=== PATIENT | female | born 1965 | race Caucasian/White ===

== ENCOUNTER → 2016-12-02 | Outpatient (CLI) | payer MEDICAID | LOC: WI 09:51 | PROVIDERS: ATTEND Physician Assistant | DX: Z12.31 Encounter for screening mammogram for malignant neoplasm of breast (principal) | CPT/HCPCS: 77067; G0202 ==

== ENCOUNTER 2017-01-02 10:08 | Emergency (ER) | payer MEDICAID ==
[2017-01-02] MEDS ORDERED: HYDROCODONE/ACETAMINOPHEN 5-325 MG TABLET PO ONE (10:41)
--- NOTE | 2017-01-02 10:43 | ER Document Report ---
ED Extremity Problem, Lower - General Chief Complaint: Ankle Pain Stated Complaint: FAL,LEFT ANKLE PAIN Mode of Arrival: Medic Information source: Patient TRAVEL OUTSIDE OF THE [place] IN LAST 30 DAYS: No - HPI Patient complains to provider of: Injury Location: Ankle Notes: Patient arrives via EMS after injuring her left ankle. She states that she tripped over a cat liter box with her right foot causing her to land with all her weight on her left leg and twisted her left ankle. She now complains of pain to the left ankle mainly in the posterior aspect. She denies any numbness , tingling, weakness. She denies any fevers. She denies any redness. She denies any other injuries at this time. Pain is worse with movement and weightbearing, nothing seems to get better. She denies any chest pain or shortness breath. No syncope. She denies any nausea, vomiting, diarrhea. She has no other complaints at this time. - Related Data Allergies/Adverse Reactions: doxycycline [Doxycycline] Allergy (Verified 01/02/17 10:25) Penicillins Allergy (Verified 01/02/17 10:25) Sulfa (Sulfonamide Antibiotics) Allergy (Verified 01/02/17 10:25) Past Medical History - Social History Smoking Status: Unknown if Ever Smoked Family History: Reviewed & Not Pertinent Patient has suicidal ideation: No Patient has homicidal ideation: No Pulmonary Medical History: Reports: Hx COPD Renal/ Medical History: Denies: Hx Peritoneal Dialysis GI Medical History: Reports: Hx Gastroesophageal Reflux Disease, Hx Hiatal Hernia - Immunizations Hx Diphtheria, Pertussis, Tetanus Vaccination: Yes Review of Systems - Review of Systems -: Yes All other systems reviewed and negative Physical Exam - Vital signs Vitals: Temp Pulse Resp BP Pulse Ox 98.2 F 86 18 153/86 H 99 01/02/17 10:26 01/02/17 10:26 01/02/17 10:26 01/02/17 10:26 01/02/17 10:26 - Notes Notes: GENERAL: alert, cooperative, nontoxic, no distress. HEAD: normocephalic, atraumatic EYES: conjunctiva pink without discharge, no external redness or swelling. EARS: no external swelling, no external redness NOSE: atraumatic, no external swelling MOUTH/THROAT: mucous membranes moist and pink NECK: soft, supple, full range of motion, no meningismus. CHEST: no distress, lungs clear and equal throughout. No wheezing, rales, rhonchi. CARDIAC: regular rate and rhythm, no murmur, normal capillary refill, normal pulses. BACK: full range of motion, no CVA tenderness. EXTREMITIES: Patient has tenderness to palpation of the medial and lateral malleolus as well as the posterior ankle. Achilles is intact with a normal Fisher's test. She is some mild tenderness to palpation to the proximal left tib-fib, although the patient states that this is chronic. There is no redness noted. She has normal pulse and sensation distally. Remainder of her musculoskeletal exam is unremarkable. NEURO: alert and oriented 3, no focal deficits, full range of motion of all extremities. PYSCH: appropriate mood, affect. Patient is cooperative. SKIN: pink, warm, dry, no rash. Course - Re-evaluation Re-evalutation: 01/02/17 11:37 Patient's nontoxic appearing stable vitals. The patient tripped and injured her left ankle. She has no obvious ligament instability. Achilles is intact. X-rays show no obvious acute fractures. Due to the patient's body habitus, a Velcro ankle splint would not fit appropriately. The patient had an Mychal wrap applied for comfort. She was offered crutches but declined crutches or a walker. She states she has a cane at home that she will use for ambulation. I' ll discharge the patient home with NSAIDs. Follow-up with [facility] or her family doctor if not better in one week, sooner for increased pain, fever, redness, any further concerns. The patient is noted to have elevated blood pressure during today's emergency department visit. The patient was informed of this finding. The patient was instructed that this may be related to pre-hypertension and requires further evaluation with a primary care provider. The patient has no hypertensive symptoms at this time. The patient's emergency department workup and current diagnosis were explained to the patient and or family. Follow-up instructions were provided. Medications if prescribed were discussed. Instructions for when to return to the emergency department including specific worrisome symptoms were discussed with the patient and/or family. - Vital Signs Vital signs: Temp Pulse Resp BP Pulse Ox 98.2 F 86 18 153/86 H 99 01/02/17 10:26 01/02/17 10:26 01/02/17 10:26 01/02/17 10:26 01/02/17 10:26 - Diagnostic Test Radiology reviewed: Image reviewed - Negative left ankle or tib-fib for acute fracture Procedures - Immobilization left ankle Pre-Proc Neuro Vasc Exam: Normal Immobilizer type: Mychal wrap Performed by: RN Post-Proc Neuro Vasc Exam: Normal Alignment checked and good: Yes Discharge - Discharge Clinical Impression: Left ankle sprain Qualifiers: Encounter type: initial encounter Involved ligament of ankle: unspecified ligament Qualified Code(s): S93.402A - Sprain of unspecified ligament of left ankle, initial encounter Condition: Stable Disposition: HOME, SELF-CARE Instructions: Sprained Ankle ([facility]) Additional Instructions: Take medications as prescribed. Wear Mychal wrap as needed for comfort. Rest, ice , elevate her ankle. Follow-up with your family doctor or or so if not better in one week, sooner for increased pain, fever, redness, any further concerns. Your blood pressure was elevated during today's visit. Have this rechecked with your doctor. Prescriptions: Diclofenac Sodium [Voltaren] 75 mg PO BID #20 tablet.dr Forms: Elevated Blood Pressure Referrals: YANE SONG MD [ACTIVE STAFF] - Follow up as needed
[2017-01-02 11:50] VITALS: BP 129/75
== END 2017-01-02 11:45 | disposition home or self-care (01) ==
LOC: ER 10:08
DX: S93.402A Sprain of unspecified ligament of left ankle, initial encounter (principal); M25.572 Pain in left ankle and joints of left foot; W01.0XXA Fall on same level from slipping, tripping and stumbling without subsequent striking against object, initial encounter; J44.9 Chronic obstructive pulmonary disease, unspecified; R03.0 Elevated blood-pressure reading, without diagnosis of hypertension; Z88.1 Allergy status to other antibiotic agents; Z88.0 Allergy status to penicillin; Z88.2 Allergy status to sulfonamides
CPT/HCPCS: 99283

== ENCOUNTER 2017-09-03 07:57 | Day surgery (SDC) | payer MEDICAID ==
[~2017-09-03 07:57] MED LIST: KETOROLAC TROMETHAMINE 0.45% 4 DROP/0.4 ML DROPERETTE OS PRN
[2017-09-03] MEDS: TROPICAMIDE 1% OPH SOLN 3 ML OS PRN ×3 (08:40→09:20)
[2017-09-03] MEDS: CYCLOPENTOLATE 0.2%/PHENYLEPHRINE 1% OPH SOLN 2 ML OS PRN ×3 (08:40→09:20)
[2017-09-03] MEDS: BESIFLOXACIN HCL 0.6% OPH SUSP 5 ML BOTTLE OS PRN ×3 (08:41→10:05)
[2017-09-03] MEDS: TETRACAINE HCL 0.5% OPH SOLN 2 ML OS PRN ×3 (08:42→09:46)
[2017-09-03] MEDS ORDERED: LIDOCAINE 1% INJ-PF (10 MG/ML) 30 ML SDV ONE (08:49)
[2017-09-03] MEDS ORDERED: CHONDR SU A NA/HYALUR INTRAOC KIT (SURGICARE) ONE (08:49)
[2017-09-03] MEDS ORDERED: EPINEPHRINE INJ/PF 1 MG/1 ML AMPULE ONE (08:49)
[2017-09-03] MEDS ORDERED: MIDAZOLAM 2 MG/2 ML INJ ONE ×2 (09:03→09:30)
[2017-09-03] MEDS ORDERED: FENTANYL CITRATE INJ/PF 100 MCG/2 ML AMPUL ONE (09:30)
--- NOTE | 2017-09-03 21:28 | [facility] DISCHARGE SUMMARY E ---
[facility] Discharge Summary NAME: TONO NOLAND AGE: 51Y ADMITTED: 09/03/2017 DISCHARGED: 09/03/2017 HOSPITAL COURSE: This is a 51-year-old female who underwent cataract extraction of the left eye. DIAGNOSIS: CATARACT, LEFT EYE. She underwent surgery because she was having difficulty seeing road signs. DISCHARGE INSTRUCTIONS: She should be on a regular diet. No bending at her waist, no heavy lifting. She should use Besivance, Ilevro, and Durezol at 3 p.m. and 8 p.m. and sleep with a rigid shield. I will see her for her 1 day postoperative tomorrow. DICTATING PHYSICIAN: MARIO WILLIAM M.D. [id number] PHY#: [id number] ID: [id number] JOB#: [id number] ACCT: [id number] cc:MARIO WILLIAM M.D. >
--- NOTE | 2017-09-03 21:28 | [facility] OPERATIVE REPORT E ---
[facility] Operative Report NAME: TONO NOLAND AGE: 51Y DATE OF SURGERY: 09/03/2017 ROOM: PREOPERATIVE DIAGNOSIS: CATARACT, LEFT EYE. POSTOPERATIVE DIAGNOSIS: CATARACT, LEFT EYE. OPERATION: Cataract extraction with intraocular lens implant of the left eye. SURGEON: MARIO WILLIAM M.D. ANESTHESIA: Topical. PROCEDURE: After obtaining appropriate consent, the patient's left eye was prepped and draped in sterile fashion as well as the surgeon in a sterile manner and cataract surgery was started. First a paracentesis blade was used to make a small side-port incision. Viscoelastic was used to inflate the anterior chamber. Next a 2.4 mm incision was made with the paracentesis blade. A continuous capsulorrhexis incision was made using a cystotome and Utrata forceps. Following this hydrodissection was carried out to make the lens fully loose and mobile and it was rotated 90 degrees. Following this, a mggspt-bep-mqagaon technique was used to phacoemulsify the lens with a CDE of 3.27. The remaining cortex was removed with irrigation/aspiration. Provisc was instilled into the capsular bag to inflate the bag. A SN60WF, 22.5 diopter lens was placed. The remaining viscoelastic material was removed with irrigation/aspiration. Following this, a 10-0 nylon suture was used to close the incision and it was found to be watertight. Vigamox was instilled in the eye and a protective shield was placed over the eye. The patient returned to the postoperative recovery in stable condition. DICTATING PHYSICIAN: MARIO WILLIAM M.D. [id number] PHY#: [id number] ID: [id number] JOB#: [id number] ACCT: [id number] cc:MARIO WILLIAM M.D. >
== END 2017-09-03 10:45 | disposition home or self-care (01) ==
LOC: SC 07:57
PROVIDERS: ATTEND Internal Medicine
PROC: 08RK3JZ Replacement of Left Lens with Synthetic Substitute, Percutaneous Approach (ICD-10-PCS; principal; 2017-09-03 10:00)
DX: H25.13 Age-related nuclear cataract, bilateral (principal); J44.9 Chronic obstructive pulmonary disease, unspecified; I10 Essential (primary) hypertension; M35.3 Polymyalgia rheumatica; E66.9 Obesity, unspecified; Z79.899 Other long term (current) drug therapy; Z88.0 Allergy status to penicillin; Z68.42 Body mass index [BMI] 45.0-49.9, adult; Z79.51 Long term (current) use of inhaled steroids; Z79.4 Long term (current) use of insulin; M19.90 Unspecified osteoarthritis, unspecified site; Z91.040 Latex allergy status
CPT/HCPCS: 66984; V2632; J2250; J3490 ×4; J0171; J3010; 142

== ENCOUNTER 2018-09-24 12:50 | Emergency (ER) | payer MEDICAID ==
[2018-09-24] MEDS ORDERED: DIPH/PERTUSS(ACELL)/TETANUS VAC/PF 0.5 ML SYR (>=10YO) IM ONE (13:32)
[2018-09-24] MEDS ORDERED: HYDROCODONE/ACETAMINOPHEN 5-325 MG TABLET PO ONE (13:32)
--- NOTE | 2018-09-24 13:35 | ER Document Report ---
HPI - HPI Patient complains to provider of: fall Time Seen by Provider: 09/24/18 13:25 Onset: Yesterday Onset/Duration: Gradual Quality of pain: Achy Pain Level: 5 Context: Patient states she was walking outside slipped and fell landed on pavement. Patient states initially she was not very sore but gradually had increased pain. Patient complains of left-sided facial pain headache neck, left shoulder and left lower leg pain. Patient also complains of upper back tenderness. Patient denies any nausea or vomiting or loss of consciousness. Associated Symptoms: Headache, Other - Left shoulder, left leg, left side facial pain. denies: Nonproductive cough, Productive cough Exacerbated by: Movement, Walking Relieved by: Denies Similar symptoms previously: No Recently seen / treated by doctor: No - ROS ROS below otherwise negative: Yes Systems Reviewed and Negative: Yes All other systems reviewed and negative - CONSTITUTIONAL Constitutional: DENIES: Fever - NEURO Neurology: REPORTS: Headache. DENIES: Weakness, Vision blurred, Dizzinesss / Vertigo - RESPIRATORY Respiratory: DENIES: Coughing - GASTROINTESTINAL Gastrointestinal: DENIES: Nausea, Patient vomiting - REPRODUCTIVE Reproductive: DENIES: : - MUSCULOSKELETAL Musculoskeletal: REPORTS: Extremity pain, Back Pain, Swelling - DERM Skin Color: Ecchymosis Skin Problems: Abrasion Past Medical History - General Information source: Patient - Social History Smoking Status: Current Every Day Smoker Smoking Education Provided: Yes Drug Abuse: None Occupation: None Family History: Reviewed & Not Pertinent Patient has suicidal ideation: No Patient has homicidal ideation: No - Past Medical History Cardiac Medical History: Reports: Hx Hypertension - MEDICATED Pulmonary Medical History: Reports: Hx COPD Denies: Hx Asthma Neurological Medical History: Denies: Hx Cerebrovascular Accident, Hx Seizures Renal/ Medical History: Denies: Hx Peritoneal Dialysis GI Medical History: Reports: Hx Gastroesophageal Reflux Disease, Hx Hiatal Hernia. Denies: Hx Hepatitis, Hx Ulcer Musculoskeletal Medical History: Reports Hx Arthritis Infectious Medical History: Denies: Hx Hepatitis Past Surgical History: Reports: Hx Orthopedic Surgery - Immunizations Hx Diphtheria, Pertussis, Tetanus Vaccination: Yes Vertical Provider Document - CONSTITUTIONAL Agree With Documented VS: Yes Exam Limitations: No Limitations General Appearance: WD/WN, No Apparent Distress - INFECTION CONTROL TRAVEL OUTSIDE OF THE [place] IN LAST 30 DAYS: No - HEENT HEENT: Normocephalic, PERRLA Notes: Patient with left periorbital swelling and ecchymosis, patient with left-sided facial abrasion. No raccoon or greco sign. No hemotympanum. - NECK Neck: Normal Inspection, Supple, Other - Patient with posterior cervical tenderness C4 through 7 area, no step-off or deformity, bilateral trapezius muscle tenderness - RESPIRATORY Respiratory: No Respiratory Distress, Chest Non-Tender, Wheezing - Faint scattered - CARDIOVASCULAR Cardiovascular: Regular Rate, Regular Rhythm, No Murmur Pulses: Normal: Radial, Dorsalis pedis - BACK Back: Abnormal Inspection - Thoracic tenderness at T1 through 4 area, no step- off or deformity Notes: Bilateral trapezius muscle tenderness - MUSCULOSKELETAL/EXTREMETIES Musculoskeletal/Extremeties: MAEW, FROM, Tender - Tenderness to left knee and lower leg, 2+ edema and ecchymosis, no deformity, no laxity with varus or valgus maneuvers, abrasion to left lower leg, Edema, Eccymosis - NEURO Level of Consciousness: Awake, Alert, Appropriate Motor/Sensory: No Motor Deficit - DERM Integumentary: Warm, Dry Course - Re-evaluation Re-evalutation: 09/24/18 15:[address] Fuentes regarding patient presentation and CT report findings. Patient without any paresthesia or pain symptoms in the left upper extremity with the exception of the left shoulder. Patient given a copy of her CT report and encouraged to follow-up with her primary doctor and is encouraged to follow- up with orthopedics for further evaluation. - Vital Signs Vital signs: Temp Pulse Resp BP Pulse Ox 97.8 F 88 18 116/65 97 09/24/18 13:06 09/24/18 13:06 09/24/18 13:06 09/24/18 13:06 09/24/18 13:06 - Diagnostic Test Radiology reviewed: Reports reviewed Procedures - Immobilization Left Knee Pre-Proc Neuro Vasc Exam: Normal Immobilizer type: Mychal wrap Performed by: PCT Post-Proc Neuro Vasc Exam: Normal Alignment checked and good: Yes Discharge - Discharge Clinical Impression: Fall Qualifiers: Encounter type: initial encounter Qualified Code(s): W19.XXXA - Unspecified fall, initial encounter Head injury Qualifiers: Encounter type: initial encounter Qualified Code(s): S09.90XA - Unspecified injury of head, initial encounter Contusion of left knee Qualifiers: Encounter type: initial encounter Qualified Code(s): S80.02XA - Contusion of left knee, initial encounter Cervical strain Qualifiers: Encounter type: initial encounter Qualified Code(s): S16.1XXA - Strain of muscle, fascia and tendon at neck level, initial encounter Back pain Qualifiers: Back pain location: back pain in unspecified location Chronicity: unspecified Back pain laterality: unspecified Qualified Code(s): M54.9 - Dorsalgia, unspecified Shoulder sprain Qualifiers: Encounter type: initial encounter Shoulder sprain type: unspecified sprain Laterality: left Qualified Code(s): S43.402A - Unspecified sprain of left shoulder joint, initial encounter Condition: Stable Disposition: HOME, SELF-CARE Instructions: Contusion ([facility]), Head Injury Precautions ([facility]), Neck Injury (Cervical Strain) ([facility]), Oral Narcotic Medication ([facility]), Shoulder Injury ([facility]), Sprained Knee ([facility]), Upper Back Strain ([facility]) Additional Instructions: Return immediately for any new or worsening symptoms Followup with your primary care provider, call tomorrow to make a followup appointment Follow-up with orthopedics for further evaluation, call today to make an appointment Prescriptions: Hydrocodone/Acetaminophen [Harvey 5-325 mg Tablet] 1 tab PO Q6 PRN #12 tablet PRN Reason: Walker [Folding Walker] 1 each MC ASDIR PRN #1 each PRN Reason: Forms: Smoking Cessation Education Referrals: [facility] [Provider Group] - Follow up as needed
--- NOTE | 2018-09-24 14:16 | RADIOLOGY REPORT (SQ) ---
EXAM DESCRIPTION: TIBIA FIBULA LEFT COMPLETED DATE/TIME: 09/24/2018 2:02 pm REASON FOR STUDY: fall COMPARISON: 01/02/2017. NUMBER OF VIEWS: Two views. TECHNIQUE: Two radiographic images acquired of the left tibia and fibula to include the knee and ank le in at least one projection. LIMITATIONS: None. FINDINGS: MINERALIZATION: Normal. BONES: No acute fracture or dislocation. No worrisome bone lesions. SOFT TISSUES: No obvious swelling or foreign body. OTHER: No other significant finding. IMPRESSION: NEGATIVE STUDY OF THE LEFT TIBIA AND FIBULA. NO RADIOGRAPHIC EVIDENCE OF ACUTE INJURY. TECHNICAL DOCUMENTATION: JOB ID: [id number] Walk-in Appointment Scheduler- All Rights Reserved Reading location - IP/workstation name: [email or web address]
--- NOTE | 2018-09-24 14:17 | RADIOLOGY REPORT (SQ) ---
EXAM DESCRIPTION: SHOULDER LEFT 2 OR MORE VIEWS COMPLETED DATE/TIME: 09/24/2018 2:02 pm REASON FOR STUDY: fall COMPARISON: None. NUMBER OF VIEWS: Three views. TECHNIQUE: Internal rotation, external rotation, and Y view images acquired of the left shoulder. LIMITATIONS: None. FINDINGS: MINERALIZATION: Normal. BONES: No acute fracture or dislocation. No worrisome bone lesions. JOINTS: No dislocation. VISUALIZED LUNGS AND RIBS: No pneumothorax. No rib fracture. SOFT TISSUES: No radiopaque foreign body. OTHER: No other significant finding. IMPRESSION: NEGATIVE STUDY OF THE LEFT SHOULDER. NO RADIOGRAPHIC EVIDENCE OF ACUTE INJURY. TECHNICAL DOCUMENTATION: JOB ID: [id number] [email or web address]- All Rights Reserved Reading location - IP/workstation name: [email or web address]
--- NOTE | 2018-09-24 14:18 | RADIOLOGY REPORT (SQ) ---
EXAM DESCRIPTION: KNEE LEFT 4 VIEW COMPLETED DATE/TIME: 09/24/2018 2:02 pm REASON FOR STUDY: fall COMPARISON: 02/28/2015. NUMBER OF VIEWS: Four views. TECHNIQUE: AP, lateral, and both oblique radiographic images acquired of the left knee. LIMITATIONS: None. FINDINGS: MINERALIZATION: Normal. BONES: No acute fracture or dislocation. Joint space narrowing with osteophytes, most pronounced in the medial compartment. No worrisome bone lesions. JOINT: No effusion. SOFT TISSUES: No soft tissue swelling. No radio-opaque foreign body. OTHER: No other significant finding. IMPRESSION: CHRONIC DEGENERATIVE CHANGES. NO RADIOGRAPHIC EVIDENCE OF ACUTE INJURY. TECHNICAL DOCUMENTATION: JOB ID: [id number] [employer]- All Rights Reserved Reading location - IP/workstation name: [email or web address]
--- NOTE | 2018-09-24 14:23 | RADIOLOGY REPORT (SQ) ---
EXAM DESCRIPTION: CT CERVICAL SPINE WITHOUT COMPLETED DATE/TIME: 09/24/2018 2:09 pm REASON FOR STUDY: fall , neck pain, injury COMPARISON: None. TECHNIQUE: Axial images acquired through the cervical spine without intravenous contrast. Images re viewed with lung, soft tissue and bone windows. Reconstructed coronal and sagittal MPR images review ed. Images stored on PACS. All CT scanners at this facility use dose modulation, iterative reconstruction, and/or weight based d osing when appropriate to reduce radiation dose to as low as reasonably achievable (ALARA). [facility]: Dose Right [facility]: CareDose [facility]: Dose Right [facility]: Teradose 4D [facility]: [employer] RADIATION DOSE: CT Rad equipment meets quality standard of care and radiation dose reduction techniq ues were employed. CTDIvol: 37.6 mGy. DLP: 826 mGy-cm. mGy. LIMITATIONS: None. FINDINGS: ALIGNMENT: Anatomic. MINERALIZATION: Normal. VERTEBRAL BODIES: No fractures or dislocation. DISCS: There is high-grade left foraminal narrowing at C3-4 from facet and uncovertebral hypertrophy. There is mild diffuse disc bulging, with more focal left paracentral and foraminal bony spurring at C6-7, causing high-grade left C6-7 foraminal stenosis. FACETS, LATERAL MASSES, POSTERIOR ELEMENTS: No fractures. No dislocation. No acute findings. HARDWARE: None in the spine. VISUALIZED RIBS: No fractures. LUNG APICES AND SOFT TISSUES: No significant or acute findings. OTHER: No other significant finding. IMPRESSION: NO ACUTE FINDINGS IN THE CERVICAL SPINE. TECHNICAL DOCUMENTATION: JOB ID: [id number] Quality ID # [id number]: Final reports with documentation of one or more dose reduction techniques (e.g., Au tomated exposure control, adjustment of the mA and/or kV according to patient size, use of iterative reconstruction technique) 2010 [employer]- All Rights Reserved Reading location - IP/workstation name: [email or web address]
--- NOTE | 2018-09-24 14:30 | RADIOLOGY REPORT (SQ) ---
EXAM DESCRIPTION: CT FACIAL AREA WITHOUT COMPLETED DATE/TIME: 09/24/2018 2:09 pm REASON FOR STUDY: fall COMPARISON: None. TECHNIQUE: Noncontrasted images through the facial bones and orbits windowed for bone and soft tissu e. Additional coronal and sagittal reconstructed images reviewed. All images stored on PACS. All CT scanners at this facility use dose modulation, iterative reconstruction, and/or weight based d osing when appropriate to reduce radiation dose to as low as reasonably achievable (ALARA). [facility]: Dose Right [facility]: CareDose [facility]: Dose Right [facility]: Teradose 4D [facility]: [employer] RADIATION DOSE: CT Rad equipment meets quality standard of care and radiation dose reduction techniq ues were employed. CTDIvol: 30.4 mGy. DLP: 564 mGy-cm. mGy. LIMITATIONS: None. FINDINGS: FACIAL BONES: No fracture or bone lesion. ORBITS: Intact. No fracture. Symmetric intact globes and retroorbital soft tissues. PARANASAL SINUSES: Clear. No significant mucosal thickening, mass or fluid. Status post left maxill josé miguel antrostomy. No nasal polyps. Maxillary sinus outlets are patent. SOFT TISSUES: No mass or edema. INFERIOR BRAIN: Limited view. No acute findings. OTHER: No other significant finding. IMPRESSION: No fracture or dislocation of the facial bones. TECHNICAL DOCUMENTATION: JOB ID: [id number] Quality ID # [id number]: Final reports with documentation of one or more dose reduction techniques (e.g., Au tomated exposure control, adjustment of the mA and/or kV according to patient size, use of iterative reconstruction technique) 2010 [employer]- All Rights Reserved Reading location - IP/workstation name: [email or web address]
--- NOTE | 2018-09-24 14:31 | RADIOLOGY REPORT (SQ) ---
EXAM DESCRIPTION: T SPINE AP/LAT COMPLETED DATE/TIME: 09/24/2018 2:02 pm REASON FOR STUDY: fall COMPARISON: None. NUMBER OF VIEWS: Two views. TECHNIQUE: AP and lateral radiographic images acquired of the thoracic spine. LIMITATIONS: None. FINDINGS: MINERALIZATION: Normal. ALIGNMENT: Normal. No scoliosis. VERTEBRAE: No fracture or bone lesion. Maintained height, normal segmentation. DISCS: Moderate multilevel disc degenerative disease and osteophytosis. HARDWARE: None in the spine. MEDIASTINUM AND SOFT TISSUES: Normal heart size and aortic contour. No soft tissue abnormality. VISUALIZED LUNG HANSEN: Clear. OTHER: No other significant finding. IMPRESSION: No fracture or dislocation of the thoracic spine. Moderate multilevel disc degenerative disease and osteophytosis. TECHNICAL DOCUMENTATION: JOB ID: [id number] [employer]- All Rights Reserved Reading location - IP/workstation name: [email or web address]
[2018-09-24 15:59] VITALS: BP 115/64
== END 2018-09-24 15:59 | disposition home or self-care (01) ==
LOC: ER 12:50
DX: S16.1XXA Strain of muscle, fascia and tendon at neck level, initial encounter (principal); S43.402A Unspecified sprain of left shoulder joint, initial encounter; S00.12XA Contusion of left eyelid and periocular area, initial encounter; S80.02XA Contusion of left knee, initial encounter; R51 Headache; M54.2 Cervicalgia; M54.9 Dorsalgia, unspecified; M25.512 Pain in left shoulder; M79.662 Pain in left lower leg; W01.0XXA Fall on same level from slipping, tripping and stumbling without subsequent striking against object, initial encounter; Y93.01 Activity, walking, marching and hiking; F17.200 Nicotine dependence, unspecified, uncomplicated; I10 Essential (primary) hypertension; J44.9 Chronic obstructive pulmonary disease, unspecified
CPT/HCPCS: 70486; 72070; 72125; 90471; 90715; 99284

== ENCOUNTER → 2018-10-26 | Outpatient (CLI) | payer MEDICAID ==
--- NOTE | 2018-10-26 14:25 | WOMENS IMAGING REPORT ---
EXAM DESCRIPTION: BILAT SCREENING MAMMO W/CAD COMPLETED DATE/TIME: 10/26/2018 1:46 pm REASON FOR STUDY: Z12.31 ENCOUNTER FOR SCREENING MAMMOGRAM FOR MALIGNANT NEOPLASM OF BREAST Z12.31 ENCNTR SCREEN MAMMOGRAM FOR MALIGNANT NEOPLASM OF REE COMPARISON: 12/02/2016 and 11/02/2015. TECHNIQUE: Standard craniocaudal and mediolateral oblique views of each breast recorded using digita l acquisition. LIMITATIONS: None. FINDINGS: No masses, calcifications or architectural distortion. No areas of suspicion. Read with the assistance of CAD. [facility] - R2 Cenova Version 1.3 .[facility] Imaging - R2 Cenova Version 2.1 .[facility] - R2 Cenova Version 2.4 .[facility] R2 Cenova Version 2.4 .[facility] - R2 District Superintendent Version 9.2 IMPRESSION: NORMAL MAMMOGRAM. BIRADS 1. BREAST DENSITY: b. There are scattered areas of fibroglandular density. BIRAD: 1 NEGATIVE RECOMMENDATION: ROUTINE SCREENING COMMENT: The patient has been notified of the results by letter per SA requirements. Additional no tification policies are in place for contacting patient with suspicious or incomplete findings. Quality ID #[id number]: The [employer] [place] [employer] recommends an annual screening mammogram for women aged 40 years or over. This facility utilizes a reminder system to ensure that all patients receive reminder letters, and/or direct phone calls for appointments. This includes reminders for routine scr eening mammograms, diagnostic mammograms, or other Breast Imaging Interventions when appropriate. Th is patient will be placed in the appropriate reminder system. The [employer] [place] [employer] (ACR) has developed recommendations for screening MRI of the breast s in certain patient populations, to be used in conjunction with mammography. Breast MRI surveillanc e may be appropriate for women with more than 20% lifetime risk of developing breast cancer as deter mined by genetic testing, significant family history of the disease, or history of mantle radiation f or Hodgkins Disease. ACR Practice Guidelines 2008. TECHNICAL DOCUMENTATION: FINDING NUMBER: (1) ASSESSMENT: (1) JOB ID: [id number] [facility]- All Rights Reserved Reading location - IP/workstation name: [email or web address]
== END ==
LOC: WI 13:02
PROVIDERS: ATTEND Nurse Practitioner Gerontology
DX: Z12.31 Encounter for screening mammogram for malignant neoplasm of breast (principal)
CPT/HCPCS: 77067

== ENCOUNTER 2019-06-22 07:06 | Day surgery (SDC) | payer MEDICAID ==
--- NOTE | 2019-06-15 10:49 | RADIOLOGY REPORT (SQ) ---
EXAM DESCRIPTION: CHEST PA/LATERAL COMPLETED DATE/TIME: 06/15/2019 10:16 am REASON FOR STUDY: PRE-OP COMPARISON: None. EXAM PARAMETERS: NUMBER OF VIEWS: two views TECHNIQUE: Digital Frontal and Lateral radiographic views of the chest acquired. RADIATION DOSE: NA LIMITATIONS: none FINDINGS: LUNGS AND PLEURA: No opacities, masses or pneumothorax. No pleural effusion. MEDIASTINUM AND HILAR STRUCTURES: No masses or contour abnormalities. HEART AND VASCULAR STRUCTURES: Heart normal size. No evidence for failure. Aortic atherosclerosis. BONES: No acute findings. HARDWARE: None in the chest. OTHER: No other significant finding. IMPRESSION: No evidence of acute cardiopulmonary process. TECHNICAL DOCUMENTATION: JOB ID: [id number] [employer]- All Rights Reserved Reading location - IP/workstation name: [email or web address]
[2019-06-15 10:57] LABS: HEMATOCRIT 36.5 % (36.0-47.0); HEMOGLOBIN 12.5 g/dL (12.0-15.5); MEAN CORPUSCULAR HEMOGLOBIN 29.8 pg (27.0-33.4); MEAN CORPUSCULAR HGB CONC 34.2 g/dL (32.0-36.0); MEAN CORPUSCULAR VOLUME 87 fl (80-97); PLATELET COUNT 164 10^3/uL (150-450); RED BLOOD COUNT 4.18 10^6/uL (3.72-5.28); RED CELL DISTRIBUTION WIDTH 12.8 % (11.5-14.0); WHITE BLOOD COUNT 4.6 10^3/uL (4.0-10.5)
[2019-06-15 10:59] LABS: APPEARANCE,URINE CLEAR; BILIRUBIN,URINE NEGATIVE (NEGATIVE); COLOR,URINE YELLOW; GLUCOSE, URINE NEGATIVE (NEGATIVE); KETONES,URINE NEGATIVE (NEGATIVE); LEUKOCYTE ESTERASE,URINE NEGATIVE (NEGATIVE); NITRITE,URINE NEGATIVE (NEGATIVE); PROTEIN,URINE NEGATIVE (NEGATIVE); URINE SPECIFIC GRAVITY 1.006; UROBILINOGEN,URINE NEGATIVE mg/dL (<2.0)
--- NOTE | 2019-06-15 13:09 | EKG REPORT ---
SEVERITY:- ABNORMAL ECG - SINUS RHYTHM PROLONGED QT INTERVAL NONSPECIFIC ST-T CHANGES- INFERIOR LEADS : Confirmed by: Scott Yang MD 15-Jun-2019 13:08:44
[~2019-06-22 07:06] MED LIST changes: -KETOROLAC TROMETHAMINE 0.45% 4 DROP/0.4 ML DROPERETTE OS PRN; +LACTATED RINGERS 1000 ML IV PRN; +LIDOCAINE 0.5% INJ-PF (5 MG/ML) 50 ML SDV SUBCUT PRN; +METRONIDAZOLE 500 MG/NS RTU 500 MG/100 ML RTUPB IV PRN
[2019-06-22] MEDS ORDERED: METRONIDAZOLE 500 MG/NS RTU 500 MG/100 ML RTUPB IV ONE (07:58)
[2019-06-22] MEDS ORDERED: IBUPROFEN 800 MG TABLET PO PRN ×2 (09:06→11:38)
[2019-06-22] MEDS ORDERED: HYDROMORPHONE HCL INJ/PF 2 MG/ML AMPULE IV PRN ×2 (09:06→11:38)
[2019-06-22] MEDS ORDERED: OXYCODONE-ACETAMINOPHEN 5-325 MG TABLET PO PRN ×6 (09:07→11:39)
[2019-06-22] MEDS ORDERED: MIDAZOLAM 2 MG/2 ML INJ ONE (09:28)
[2019-06-22] MEDS ORDERED: FENTANYL CITRATE INJ/PF 100 MCG/2 ML AMPUL ONE (09:28)
[2019-06-22] MEDS ORDERED: PROPOFOL INJ 200 MG/20 ML VIAL IV ONE ×2 (09:29→10:36)
[2019-06-22] MEDS ORDERED: ONDANSETRON HCL INJ/PF 4 MG/2 ML SDV ONE (09:29)
[2019-06-22] MEDS ORDERED: LIDOCAINE 1% INJ-PF (10 MG/ML) 30 ML SDV ONE (10:00)
[2019-06-22] MEDS ORDERED: MORPHINE SULFATE 10 MG/ML INJ IV PRN (10:06)
[2019-06-22] MEDS ORDERED: MEPERIDINE HCL/PF INJ 25 MG/1 ML DISP.SYRIN IV PRN (10:06)
[2019-06-22] MEDS ORDERED: PROMETHAZINE HCL INJ 25 MG/1 ML VIAL IV PRN ×2 (10:06)
[2019-06-22] MEDS ORDERED: DIPHENHYDRAMINE HCL 50 MG/ML VIAL IV PRN (10:06)
[2019-06-22] MEDS ORDERED: FENTANYL CITRATE INJ/PF 100 MCG/2 ML AMPUL IV PRN ×3 (10:06)
[2019-06-22] MEDS ORDERED: ONDANSETRON HCL INJ/PF 4 MG/2 ML SDV IV PRN ×2 (10:06→11:41)
[2019-06-22] MEDS ORDERED: LIDOCAINE 1% INJ (10 MG/ML) 10 ML MDV INJ ONE (10:21)
[2019-06-22] MEDS ORDERED: ACETAMINOPHEN 1,000 MG/100 ML RTUPB IV ONE (10:57)
[2019-06-22] MEDS ORDERED: KETOROLAC TROMETHAMINE INJ/PF 30 MG/1 ML SDV ONE (10:57)
[2019-06-22] MEDS: FENTANYL CITRATE INJ/PF 100 MCG/2 ML AMPUL ONE ×2 (10:58→11:03)
[2019-06-22 15:13] VITALS: BP 121/61
--- NOTE | 2019-07-14 07:56 | Operative Report ---
Operative Report DATE OF SURGERY: 06/22/19 PREOPERATIVE DIAGNOSIS: Postmenopausal bleeding POSTOPERATIVE DIAGNOSIS: LORA - polyp OPERATION: Hysteroscopy, D&C SURGEON: MALENA STANLEY ANESTHESIA: LMAC TISSUE REMOVED OR ALTERED: EMC, intrauterine polyp COMPLICATIONS: None ESTIMATED BLOOD LOSS: less than 5ml INTRAOPERATIVE FINDINGS: intrauterine polyp approximately 3cm at left uterine fundus, otherwise normal appearing uterine cavity. Uterus with poor descent. Significant rectocele noted bulging through introitus (Stage III to IV) once patient relaxed PROCEDURE: Anesthesia: [Annel LEIJA, Roxi Ross MOTHERCRAFT NURSE] Anesthesia: LMAC IVF: [1300ml] UOP: 400ml Indications: [53yo now with 2nd episode of postmenopausal bleeding. Endometrial biopsy done and benign. pap done in 10/2018 normal. Ultrasound with thickened endometrium at 4.6mm. She was counseled on need for diagnosis and desires to proceed with planned procedure. The risks, benefits, alternatives were reviewed and she desires to proceed with planned procedure.] Procedure: The patient was taken to the Operating Room where general anesthesia was obtained without difficulty. She was prepped and draped in the normal sterile fashion in the dorsal lithotomy position. Exam under anesthesia was performed and noted above. A speculum was placed in the vagina. The anterior cervix was grasped with a single-tooth tenaculum and the uterus sounded to 8 cm after paracervical block was performed with 8 mL of 1% lidocaine with epine phrine. Sequential dilators were then used to dilate the cervix to accommodate the Myosure hysteroscope. The hysteroscope was then gently advanced into the uterine cavity in the usual fashion with visualization of the endometrial polyp as noted above. The Myosure device was then advanced through the hysteroscope and used to easily remove the endometrial polyp noted within intrauterine cavity. The Myosure device was then removed and the hysteroscope removed. At this time gentle curettage was performed until a gritty texture was noted. All instruments were removed from the patient's cervix and vagina. Silver nitrate was applied to the tenaculum site for hemostasis. Sponge lap needle and instrument counts are correct 2. No perioperative antibiotics were given as is not indicated for this procedure. The patient tolerated the procedure well and was taken to the recovery area awake and in stable condition.
== END 2019-06-22 12:35 | disposition home or self-care (01) ==
LOC: OROUT 07:06
PROVIDERS: ATTEND Student in an Organized Health Care Education/Training Program
DX: N95.0 Postmenopausal bleeding (principal); N84.0 Polyp of corpus uteri; N93.8 Other specified abnormal uterine and vaginal bleeding; Z01.818 Encounter for other preprocedural examination; J45.909 Unspecified asthma, uncomplicated; Z79.899 Other long term (current) drug therapy
CPT/HCPCS: 93005; 36415 ×2; 84132; 85027; 81025; 81001; 88305 ×2; 71046; 93010; 00952; 58558; J2250; J3010; J3490 ×2; J1885; J2405; J2704; J0131; 952

== ENCOUNTER 2019-07-21 05:27 | Day surgery (SDC) | payer MEDICAID ==
[2019-07-12 09:27] LABS: APPEARANCE,URINE CLEAR; BILIRUBIN,URINE NEGATIVE (NEGATIVE); COLOR,URINE YELLOW; GLUCOSE, URINE NEGATIVE (NEGATIVE); KETONES,URINE NEGATIVE (NEGATIVE); LEUKOCYTE ESTERASE,URINE NEGATIVE (NEGATIVE); NITRITE,URINE NEGATIVE (NEGATIVE); PROTEIN,URINE NEGATIVE (NEGATIVE); URINE SPECIFIC GRAVITY 1.005; UROBILINOGEN,URINE NEGATIVE mg/dL (<2.0)
[2019-07-12 09:29] LABS: HEMATOCRIT 40.4 % (36.0-47.0); HEMOGLOBIN 13.8 g/dL (12.0-15.5); MEAN CORPUSCULAR HEMOGLOBIN 30.3 pg (27.0-33.4); MEAN CORPUSCULAR HGB CONC 34.2 g/dL (32.0-36.0); MEAN CORPUSCULAR VOLUME 89 fl (80-97); PLATELET COUNT 207 10^3/uL (150-450); RED BLOOD COUNT 4.55 10^6/uL (3.72-5.28); RED CELL DISTRIBUTION WIDTH 12.6 % (11.5-14.0); WHITE BLOOD COUNT 5.2 10^3/uL (4.0-10.5)
--- NOTE | 2019-07-12 09:44 | EKG REPORT ---
SEVERITY:- NORMAL ECG - SINUS RHYTHM : Confirmed by: Tiffany Bartlett 12-Jul-2019 09:43:15
[2019-07-12 10:05] LABS: ALBUMIN 4.7 g/dL (3.5-5.0); ALKALINE PHOSPHATASE 65 U/L (38-126); ANION GAP 10 (5-19); ASPARTATE AMINO TRANSFERASE 34 U/L (14-36); BILIRUBIN,DIRECT 0.2 mg/dL (0.0-0.4); BILIRUBIN,TOTAL 0.6 mg/dL (0.2-1.3); BLOOD UREA NITROGEN 14 mg/dL (7-20); CALCIUM 9.8 mg/dL (8.4-10.2); CARBON DIOXIDE 35 mmol/L (22-30); CHLORIDE 97 mmol/L (98-107); GLUCOSE 69 mg/dL (75-110); POTASSIUM 4.2 mmol/L (3.6-5.0); TOTAL PROTEIN 7.7 g/dL (6.3-8.2)
[~2019-07-21 05:27] MED LIST changes: +CLINDAMYCIN 900 MG/D5W RTU 900 MG/50 ML RTUPB IV PRN; +DEXAMETHASONE SOD PHOSPHATE INJ 4 MG/1 ML VIAL ONE; +GENTAMICIN SULFATE 120 MG in DEXTROSE 5%-WATER 100 ML IV PRN; +GLYCOPYRROLATE 1 MG/5 ML VIAL ONE; +KETOROLAC TROMETHAMINE 60 MG/2 ML SDV ONE; +LIDOCAINE 2% INJ-PF (20 MG/ML) 2 ML AMPUL ONE; -METRONIDAZOLE 500 MG/NS RTU 500 MG/100 ML RTUPB IV PRN; +NEOSTIGMINE METHYLSULFATE 10 MG/10 ML VIAL ONE; +ONDANSETRON HCL INJ/PF 4 MG/2 ML SDV ONE; +SUCCINYLCHOLINE CHLORIDE INJ 200 MG/10 ML VIAL ONE; +VECURONIUM BROMIDE INJ 10 MG VIAL IV ONE
[2019-07-21] MEDS ORDERED: CLINDAMYCIN 900 MG/D5W RTU 900 MG/50 ML RTUPB IV ONE (06:43)
[2019-07-21] MEDS ORDERED: HYDROMORPHONE HCL INJ/PF 2 MG/ML AMPULE ONE ×2 (06:44→10:16)
[2019-07-21] MEDS ORDERED: MIDAZOLAM 2 MG/2 ML INJ ONE (06:44)
[2019-07-21] MEDS ORDERED: FENTANYL CITRATE INJ/PF 100 MCG/2 ML AMPUL ONE (06:44)
[2019-07-21] MEDS ORDERED: PROPOFOL INJ 200 MG/20 ML VIAL IV ONE (06:45)
[2019-07-21] MEDS ORDERED: LIDOCAINE 1%/EPINEPHRINE INJ 20 ML VIAL ONE (07:17)
[2019-07-21] MEDS ORDERED: ALBUTEROL SULFATE 0.083% NEB 2.5 MG/3 ML AMPUL NEB ONE (07:18)
[2019-07-21] MEDS ORDERED: ESTROGENS,CONJUGATED 0.625 MG/1 GM 30 GM TUBE PV ONE (08:00)
[2019-07-21] MEDS ORDERED: MEPERIDINE HCL/PF INJ 25 MG/1 ML DISP.SYRIN IV PRN (08:10)
[2019-07-21] MEDS ORDERED: FENTANYL CITRATE INJ/PF 100 MCG/2 ML AMPUL IV PRN ×3 (08:10)
[2019-07-21] MEDS ORDERED: DIPHENHYDRAMINE HCL 50 MG/ML VIAL IV PRN (08:10)
[2019-07-21] MEDS ORDERED: PROMETHAZINE HCL INJ 25 MG/1 ML VIAL IV PRN (08:10)
[2019-07-21] MEDS ORDERED: ACETAMINOPHEN 1,000 MG/100 ML RTUPB IV ONE ×2 (10:16→18:30)
[2019-07-21] MEDS: FENTANYL CITRATE INJ/PF 100 MCG/2 ML AMPUL ONE ×2 (10:32→10:37)
[2019-07-21] MEDS ORDERED: IBUPROFEN 800 MG TABLET PO PRN (10:42)
[2019-07-21] MEDS ORDERED: RINGERS SOLUTION,LACTATED 1,000 ML IV PRN (10:43)
[2019-07-21] MEDS ORDERED: MORPHINE SULFATE 10 MG/ML INJ IV PRN (10:49)
--- NOTE | 2019-07-21 10:52 | Operative Report ---
Operative Report DATE OF SURGERY: 07/21/19 PREOPERATIVE DIAGNOSIS: postmenopausal bleeding, pelvic pain, grade 3 posterior prolapse of the vagina. POSTOPERATIVE DIAGNOSIS: same OPERATION: Robotic assisted total laparoscopic hysterectomy with bilateral salpingectomy and posterior repair SURGEON: ISREAL SIMON 1ST BORING MACHINE OPERATOR PRODUCTION: AKIKO HERRERA ANESTHESIA: GA TISSUE REMOVED OR ALTERED: uterus cervix bilateral fallopian tubes COMPLICATIONS: none ESTIMATED BLOOD LOSS: 300 INTRAOPERATIVE FINDINGS: left pelvic sidewall adheasions to the anterior uterine fundus. menopausal appearing ovaries. grade 3 prolapse of posterior vaginal mucosa. PROCEDURE: Patient was taken to the operating room prepared and draped in normal sterile fashion in dorsolithotomy position. Under sterile conditions a Sheriff catheter was placed to gravity. Speculum was placed into the vagina and the cervix was grasped on the anterior lip with a single-tooth tenaculum. The cervix was then dilated to accommodate a medium V care uterine manipulator. Manipulator was placed. gloves were changed and attention was turned to the upper portion of the case. A 2-1/2 cm umbilical skin incision was made 11 blade and this was carried through to the underlying layer of fascia with the same 11 blade. It was grasped to Reji'aparna transacted with Huffman's. New cavity was entered bluntly. A GelPort was placed in a normal fashion the camera port and air seal in the appropriate locations. Peritoneal cavity was then inflated with approximately 2 L of CO2 gas. The camera was then introduced into the peritoneal cavity through the camera port and the patient was placed in steep Trendelenburg. The above findings were noted. Under direct visualization two 5 mm ports were placed approximately 10 cm on either side of the umbilicus. The robot was then docked with the vessel sealer placed on the patient's left and the monopolar scissors placed placed on the patient's right. I then unscrubbed and set at the robotic console beginning with the left adnexa fallopian tube was transected from the uterus using the vessel sealer and monopolar scissors as needed. The fallopian tube was then removed through the assistance port. The ovarian ligament was then transected using the vessel sealer. The uterine artery was skeletonized using blunt dissection and ligated using the vessel sealer down to the level of the external cervical os. The bladder flap was then begun using monopolar scissors and blunt dissection over the V care cup noted through the mucosa. Attention was then turned to the right adnexa where the fallopian tube was transected in a similar fashion. The utero-ovarian ligament was transected using the vessel sealer. The Uterine artery was then transected using the vessel sealer and skeletonized using blunt dissection. The vessel sealer was again used to completely transect the uterine artery down to the level of the external cervical os. The bladder flap was completed using similar sharp and blunt dissection. Once the bladder was felt to be adequately away from the lower uterine segment, the colpotomy was begun on the anterior aspect of the cervix following the outline of the V care cup mucosa. The cup was followed in a circumferential fashion completely around the cervix estimate was completely freed. The specimen was then removed through the vaginal defect. The instruments were then changed to a Osmar needle package delivery driver and pro-grasp. A V lock needle was introduced through the assistance port. The lock needle was used to close the vaginal cuff with good hemostasis. The needle was then removed through the assistance port. The peritoneal cavity was carefully inspected the ureters were noted to both be peristalsing and there was no signs of hydroureter. The robot was then undocked. The fascia was closed at the umbilical skin incision seen 0 Vicryl 3 skin incisions were closed using 4-0 Vicryl. Attention was then turned to the vaginal portion of the case .the posterior vaginal mucosa was grasped with 2 Allises in the midline .mucosa was injected with approximately 10 cc of lidocaine with epi. A incision was made in the midline using a 15 blade .Koza was then dissected away from the defect using Metzenbaums and blunt dissection as needed with a running out sponge .once the defect was adequately exposed , 4 sutures of 0 Vicryl pop offs were placed in a bridge fashion the defect was tucked underneath proving the prolapse . The excess mucosa was then trimmed using Metzenbaums . The incision was then closed using a Vicryl runner . The vagina was then packed with a Kerlix coated in Premarin cream . The anterior mucosa was inspected was found to have very minimal prolapse therefore the case was concluded . sponge lap and needle counts were correct x2 and the patient was taken to recovery in stable condition.
[2019-07-21] MEDS ORDERED: LORAZEPAM INJ 2 MG/1 ML VIAL ONE (11:02)
[2019-07-21] MEDS: OXYCODONE-ACETAMINOPHEN 5-325 MG TABLET PO PRN ×2 (12:56→20:33)
[2019-07-21] MEDS: KETOROLAC TROMETHAMINE INJ/PF 30 MG/1 ML SDV IV SCH ×2 (13:52→22:49)
[2019-07-22 04:48] LABS: HEMATOCRIT 34.8 % (36.0-47.0); MEAN CORPUSCULAR HEMOGLOBIN 30.6 pg (27.0-33.4); MEAN CORPUSCULAR HGB CONC 34.5 g/dL (32.0-36.0); MEAN CORPUSCULAR VOLUME 89 fl (80-97); PLATELET COUNT 172 10^3/uL (150-450); RED BLOOD COUNT 3.92 10^6/uL (3.72-5.28); RED CELL DISTRIBUTION WIDTH 12.5 % (11.5-14.0); WHITE BLOOD COUNT 7.6 10^3/uL (4.0-10.5)
[2019-07-22] MEDS: KETOROLAC TROMETHAMINE INJ/PF 30 MG/1 ML SDV IV SCH (05:39)
[2019-07-22] MEDS: OXYCODONE-ACETAMINOPHEN 5-325 MG TABLET PO PRN (06:02)
--- NOTE | 2019-07-22 07:37 | PDOC DISCHARGE SUMMARY ---
Impression - Admit/DC Date/PCP Admission Date/Primary Care Provider: SAÚL CHAMPAGNE PA-C Discharge Date: 07/22/19 - Discharge Diagnosis (1) Postmenopausal bleeding Is this a current diagnosis for this admission?: Yes (2) Posterior vaginal wall prolapse Is this a current diagnosis for this admission?: Yes - Additional Information Resuscitation Status: Full Code Discharge Diet: As Tolerated Discharge Activity: Balance Activity w/Rest, No Driving, No Lifting Over 10 Pounds, No Lifting/Push/Pulling, Pelvic Rest, No tub bath Referrals: SAÚL CHAMPAGNE PA-C [Primary Care Provider] - Prescriptions: Oxycodone HCl/Acetaminophen [Percocet 5-325 mg Tablet] 1 tab PO Q6HP PRN #30 tablet PRN Reason: Ibuprofen [Motrin 800 mg Tablet] 800 mg PO Q8HP PRN #60 tablet PRN Reason: Home Medications: Albuterol Sulfate [Proventil Hfa] 6.7 gm IH .Q4-6 08/26/17 Albuterol Sulfate [Ventolin 0.083% Neb 2.5 mg/3 ml Ampul] 1 vial NEB Q4 PRN 08/26/17 Budesonide/Formoterol Fumarate [Symbicort 160-4.5 Mcg Inhaler] 10.2 gm IH DAILY 08/26/17 Buspirone HCl [Buspar 10 mg Tablet] 20 mg PO DAILY 08/26/17 Clonazepam 0.5 mg PO DAILY PRN 08/26/17 Cyclobenzaprine HCl [Flexeril 10 mg Tablet] 10 mg PO TIDP PRN 08/26/17 Duloxetine HCl [Cymbalta] 60 mg PO DAILY 08/26/17 Esomeprazole Magnesium [Nexium] 40 mg PO DAILY 08/26/17 Furosemide [Lasix 40 mg Tablet] 40 mg PO QAM 08/26/17 Gabapentin 600 mg PO BID 08/26/17 Hydroxychloroquine Sulfate [Plaquenil 200 mg Tablet] 200 mg PO BID 08/26/17 Lisinopril 5 mg PO DAILY 08/26/17 Meloxicam [Mobic] 15 mg PO DAILY 08/26/17 Tiotropium Fannin [Spiriva] 18 mcg IH DAILY 08/26/17 Bupropion HCl [Wellbutrin Xl 300mg 24hr Tablet] 1 tab PO DAILY 06/14/19 Cetirizine HCl [Zyrtec] 10 mg PO DAILY 06/14/19 Ibuprofen [Motrin 800 mg Tablet] 800 mg PO Q8HP PRN #60 tablet 07/22/19 Oxycodone HCl/Acetaminophen [Percocet 5-325 mg Tablet] 1 tab PO Q6HP PRN #30 tablet 07/22/19 Additional Information: underwent RATLH w/ b/l salpingectomy, lysis of adhesions and posterior repair. is voiding and passing flatus. tolerating regular diet History of Present Illiness History of Present Illness: OTNO NOLAND is a 53 year old female Physical Exam - Physical Exam Vital Signs: Temp Pulse Resp BP Pulse Ox 98.1 F 100 16 117/60 93 07/21/19 19:18 07/21/19 19:18 07/21/19 19:18 07/21/19 19:18 07/21/19 19:18 Intake & Output 07/21/19 07/22/19 07/23/19 06:59 06:59 06:59 Intake Total 0 2000 Output Total 3275 Balance 0 -1275 Weight 130.18 kg 130.1 kg Results Laboratory Results: WBC 7.6 10^3/uL (4.0-10.5) 07/22/19 04:34 RBC 3.92 10^6/uL (3.72-5.28) 07/22/19 04:34 Hgb 12.0 g/dL (12.0-15.5) 07/22/19 04:34 Hct 34.8 % (36.0-47.0) L 07/22/19 04:34 MCV 89 fl (80-97) 07/22/19 04:34 MCH 30.6 pg (27.0-33.4) 07/22/19 04:34 MCHC 34.5 g/dL (32.0-36.0) 07/22/19 04:34 RDW 12.5 % (11.5-14.0) 07/22/19 04:34 Plt Count 172 10^3/uL (150-450) 07/22/19 04:34 Sodium 141.6 mmol/L (137-145) 07/12/19 08:21 Potassium 3.7 mmol/L (3.6-5.0) 07/21/19 06:35 Chloride 97 mmol/L (98-107) L 07/12/19 08:21 Carbon Dioxide 35 mmol/L (22-30) H 07/12/19 08:21 Anion Gap 10 (5-19) 07/12/19 08:21 BUN 14 mg/dL (7-20) 07/12/19 08:21 Creatinine 1.05 mg/dL (0.52-1.25) 07/12/19 08:21 Est GFR ( Amer) > 60 (>60) 07/12/19 08:21 Est GFR (MDRD) Non-Af 55 (>60) L 07/12/19 08:21 Glucose 69 mg/dL (75-110) L 07/12/19 08:21 Calcium 9.8 mg/dL (8.4-10.2) 07/12/19 08:21 Total Bilirubin 0.6 mg/dL (0.2-1.3) 07/12/19 08:21 Direct Bilirubin 0.2 mg/dL (0.0-0.4) 07/12/19 08:21 Neonat Total Bilirubin Not Reportable 07/12/19 08:21 Neonat Direct Bilirubin Not Reportable 07/12/19 08:21 Neonat Indirect Bili Not Reportable 07/12/19 08:21 AST 34 U/L (14-36) 07/12/19 08:21 ALT 24 U/L (<35) 07/12/19 08:21 Alkaline Phosphatase 65 U/L (38-126) 07/12/19 08:21 Total Protein 7.7 g/dL (6.3-8.2) 07/12/19 08:21 Albumin 4.7 g/dL (3.5-5.0) 07/12/19 08:21 Serum HCG, Qual NEGATIVE (NEGATIVE) 07/21/19 06:35 Urine Color YELLOW 07/12/19 08:07 Urine Appearance CLEAR 07/12/19 08:07 Urine pH 8.0 (5.0-9.0) 07/12/19 08:07 Ur Specific [place] 1.005 07/12/19 08:07 Urine Protein NEGATIVE mg/dL (NEGATIVE) 07/12/19 08:07 Urine Glucose (UA) NEGATIVE mg/dL (NEGATIVE) 07/12/19 08:07 Urine Ketones NEGATIVE mg/dL (NEGATIVE) 07/12/19 08:07 Urine Blood NEGATIVE (NEGATIVE) 07/12/19 08:07 Urine Nitrite NEGATIVE (NEGATIVE) 07/12/19 08:07 Urine Bilirubin NEGATIVE (NEGATIVE) 07/12/19 08:07 Urine Urobilinogen NEGATIVE mg/dL (<2.0) 07/12/19 08:07 Ur Leukocyte Esterase NEGATIVE (NEGATIVE) 07/12/19 08:07 Urine WBC (Auto) 0 /HPF 07/12/19 08:07 Squamous Epi Cells Auto <1 /HPF 07/12/19 08:07 Urine Mucus (Auto) RARE /LPF 07/12/19 08:07 Urine Ascorbic Acid NEGATIVE (NEGATIVE) 07/12/19 08:07 Blood Type O POSITIVE 07/21/19 06:35 Antibody Screen NEGATIVE 07/21/19 06:35 Stroke Is this a Stroke Patient?: No Acute Heart Failure - Is this a Heart Failure Patient?: No
[2019-07-22 10:05] VITALS: BP 130/84
[2019-07-22] MEDS ORDERED: IBUPROFEN 800 MG TABLET PO PRN (14:00)
== END 2019-07-22 11:17 | disposition home or self-care (01) ==
LOC: OROUT 05:27 → 2N 11:50 → OROUT 07-22 11:17
PROVIDERS: ATTEND Obstetrics & Gynecology
DX: N95.0 Postmenopausal bleeding (principal); N81.6 Rectocele; N80.0 Endometriosis of uterus; J44.9 Chronic obstructive pulmonary disease, unspecified; Z87.891 Personal history of nicotine dependence; I10 Essential (primary) hypertension; Z79.899 Other long term (current) drug therapy; Z88.0 Allergy status to penicillin; Z88.2 Allergy status to sulfonamides; Z88.1 Allergy status to other antibiotic agents; Z91.040 Latex allergy status
CPT/HCPCS: 57250; 58571; S2900; 36415; 80053; 81001; 84132; 84703; 85027; 86850; 86900; 86901; 88307; 93005; 93010; 944; A4649; J0131; J0330; J1100; J1170; J1580; J1885; J2060; J2250; J2270; J2405; J2704; J2710; J3010; J3490; J7060; J7120